=== PATIENT | female | born 1955 | race Caucasian/White ===

== ENCOUNTER 2017-06-21 11:04 | Emergency (ER) | payer OTHER ==
[2017-06-21] MEDS ORDERED: NALBUPHINE HCL 20 MG/ML AMPUL IM ONE (11:21)
--- NOTE | 2017-06-21 11:28 | ERNOTE ---
Lower Extremity HPI - Narrative Date of Service: 06/21/17 - General Lower Extremities Pain: foot: right Time Seen by Provider: 06/21/17 11:15 Source: patient Exam Limitations: no limitations - Immun/Allergies/Home Medications Immunizations: IMMUNIZATION HX Immunizations Up to Date No History of Influenza Vaccine No Hx Pneumococcal Vaccination No Allergies/Adverse Reactions: Allergies Allergy/AdvReac Type Severity Reaction Status Date / Time No Known Allergies Allergy Verified 06/21/17 11:16 Home Medications: HOME MEDICATIONS Ibuprofen [Motrin] 600 mg PO PRN PRN 06/21/17 [Last Taken Unknown] oxyCODONE HCL/ACETAMINOPHEN [Percocet 5 MG/325 MG] 1 tab PO Q4H PRN #20 tab [Last Taken Unknown] - History of Present Illness Narrative: Pt. 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 Pt. denies hitting her head or pain anywhere else. Pt. denies any numbness, tingling, SOB, or CP. Pt. states that movement and ambulation are difficult and exacerbate the pain and nothing alleviates the pain despite taking 600mg Ibuprofen prior to arrival. Review of Systems - Review of Systems Constitutional: Present: no symptoms reported. Absent: recent illness, fever, chills, weakness, fatigue, malaise EYE: Present: no symptoms reported ENT: Present: no symptoms reported Respiratory: Present: no symptoms reported. Absent: shortness of breath, cough , wheezing Cardiology: Present: no symptoms reported. Absent: chest pain, palpitations, edema Gastrointestinal/Abdominal: Present: no symptoms reported. Absent: nausea, vomiting, diarrhea, abdominal pain Genitourinary: Present: no symptoms reported. Absent: frequency, decreased urinary output Musculoskeletal: Present: joint pain - R foot and ankle Skin: Present: no symptoms reported. Absent: rash, change in hair/nails Neurological: Present: no symptoms reported. Absent: headache, dizziness/light- headedness, numbness, tingling All Other Systems: All systems neg except as marked - Patient's Past Medical History Patient History - Medical: No pertinent hx Patient History - Cardiac/Respiratory: No pertinent hx Patient History - Cancer: No Hx of Cancer Patient History - Surgical Procedures: Appendectomy, Colonoscopy Patient History - Other: None LMP (females 10-50): post - Social History Living Situations: home Psych History: No pertinent hx Smoking Status: Never smoker Alcohol Use: none Drug Use: none - Immunizations Immunizations Up to Date: No Hx Pneumococcal Vaccination: No History of Influenza Vaccine: No Physical Exam - Physical Exam General Appearance: Present: wd/wn, alert, no apparent distress Head Exam: Present: normal inspection, no evidence of injury Eye Exam: Normal inspection: bilateral Neck: Present: normal inspection Respiratory: Present: no respiratory distress, normal breath sounds, no accessory muscle use, chest nontender, lungs clear Cardiovascular/Chest: Present: regular rate, rhythm, no murmur, normal peripheral pulses Back Exam: Present: normal inspection Extremity Exam: Present: decreased range of motion - R ankle and foot, bony tenderness - calcaneous prox metatarsal dorsal ankle row bones and prox metatarsals, joint swelling - R ankle Neurological Exam: Present: alert, oriented, normal mood/affect, no motor/ sensory deficits Skin Exam: Present: normal color, warm/dry. Absent: pallor, skin rash ED Progress - Date and Time Seen: Date and Time: 06/21/17 12:09 Disucussed case with Radha Hull and he will come see pt. after reviewing xrays. 06/21/17 12:20 Radha recommends stress view of ankle called and spoke with brian in xray and she is calling in specific tech to take this xray. 06/21/17 12:58 Radha reviewed stress xray and recommends follow up on monday and cam boot with crutches. - Vital Signs Patient's Vital Signs:: I have reviewed the patient's vital signs. Vital Signs: Vital Signs 06/21/17 11:08 Temperature 36.9 C Pulse Rate 63 Respiratory 16 Rate Blood Pressure 166/96 O2 Sat by Pulse 99 Oximetry - X-Ray X-Ray #1 X-Ray: ankle Interpretation: Reviewed by me X-ray Comments: R minimally displaced lateral malleolar fracture X-Ray #2 X-Ray: ankle Interpretation: Reviewed by me X-ray Comments: no stress changes in joint mortise - Progress/Reassessment Chief Complaint: Lower Extremity Pain/ Injury Departure Clinical Impression: Ankle fracture, lateral malleolus, closed Qualifiers: Encounter type: initial encounter Fracture alignment: nondisplaced Laterality: right Qualified Code(s): S82.64XA - Nondisplaced fracture of lateral malleolus of right fibula, initial encounter for closed fracture - Departure Disposition: Home self-care Condition: Good Instructions: Ankle Fracture, [id number] Additional Instructions: Please wear boot at all times and follow up with radha as planned. Prescriptions: oxyCODONE HCL/ACETAMINOPHEN [Percocet 5 MG/325 MG] 1 tab PO Q4H PRN #20 tab PRN Reason: Pain
[2017-06-21] MEDS ORDERED: NALBUPHINE HCL 20 MG/ML AMPUL ONE (11:46)
[2017-06-21 15:14] VITALS: BP 163/78
== END 2017-06-21 13:20 | disposition home or self-care (01) ==
LOC: ER 11:04
PROC: 2W3QX1Z Immobilization of Right Lower Leg using Splint (ICD-10-PCS; principal; 2017-06-21)
DX: S82.64XA Nondisplaced fracture of lateral malleolus of right fibula, initial encounter for closed fracture (principal); W01.198A Fall on same level from slipping, tripping and stumbling with subsequent striking against other object, initial encounter; Y93.89 Activity, other specified; Y92.63 Factory as the place of occurrence of the external cause; Y99.0 Civilian activity done for income or pay

== ENCOUNTER 2019-07-08 15:19 | Observation (INO) ==
[2019-07-08 15:37] LABS: Hematocrit 39.7 % (37.0-47.0); Hemoglobin 13.5 gm/dL (12.5-16.0); Mean Cell Volume 87.6 fl (78-100); Mean Corpuscular Hemoglobin 29.8 pg (27-31); Mean Platelet Volume 9.8 fl (8-12.5); Neutrophil % 53.1 % (42-75.0); Platelet Count 225 K/mm3 (150-450); Red Blood Count 4.53 M/mm3 (4.2-5.4); Red Cell Distribution Width 12.5 % (11.5-14.0); White Blood Count 6.5 K/mm3 (4.0-10.5)
[2019-07-08 15:38] LABS: Neutrophil # 3.5 K/mm3 (1.3-6.0)
[2019-07-08 15:56] LABS: ALT 18 U/L (19-67); AST 14 U/L (0-48); Albumin * 3.7 gm/dl (3.4-5.0); Alkaline Phosphatase * 110 U/L (50-170); Anion Gap 12.7 mmol/L (6.8-13.8); BUN/Creatinine Ratio 15.1 (9.0-21.6); Bilirubin, Total 0.3 mg/dL (0.0-1.1); Blood Urea Nitrogen 13 mg/dL (3-23); Ca. Corrected For Albumin 8.9 mg/dL (8.4-10.2); Carbon Dioxide 27.9 mmol/L (24-32.6); Chloride 103 mmol/L (97-106); Glucose * 90 mg/dL (70-110); Potassium 3.6 mmol/L (3.4-4.6); Sodium 140 mmol/L (132-142); Total Protein 7.8 gm/dL (6.2-8.2); Troponin I Less than 0.017 ng/mL (0.00-0.10)
[2019-07-08] MEDS ORDERED: ASPIRIN 81 MG TAB.CHEW PO ONE (16:18)
--- NOTE | 2019-07-08 16:23 | ERNOTE ---
Chest Pain/Cardiac HPI Chief Complaint: General Assessment Time Seen by Provider: 07/08/19 15:52 Source: patient Exam Limitations: no limitations Immunizations: IMMUNIZATION HX Immunizations Up to Date Yes History of Influenza Vaccine No Hx Pneumococcal Vaccination No Allergies/Adverse Reactions: Allergies No Known Allergies Allergy (Verified 07/08/19 15:31) Home Medications: HOME MEDICATIONS Ibuprofen [Motrin] 600 mg PO PRN PRN 06/21/17 [Last Taken Unknown] pantoprazole 40 mg tablet,delayed release 40 mg PO DAILY #30 tab 07/04/19 [Last Taken Unknown] Narrative: Three nights ago patient started to feel light headed, worse with getting up, two days ago she started to have central chest pressure, worse with activity. She has no prior history of heart disease, she currently has no pressure. Her mother three weeks ago which leaves her stressed, her sister recently has CABG Date (Duration): 07/05/19 Timing: constant Severity/Quality: mild, pressure Location: central Chest Pain Radiation: no radiation Activities at Onset: none Modifying Factors - Improves: Present: rest Modifying Factors - Worsens: Present: exercise Nitro Today/Relief: no nitro taken today Aspirin Treatment Today: no aspirin today Associated Symptoms: Present: dizziness, palpitations, nausea - this morning. Absent: headache, shortness of breath Prior Chest Pain/Cardiac Workup: Denies: prior chest pain, heart attack Prior Treatment: Denies: recently seen, currently on antibiotics Review of Systems - Review of Systems Constitutional: Absent: recent illness ENT: Absent: nose congestion, sore throat Respiratory: Present: See HPI, shortness of breath. Absent: cough Cardiology: Present: See HPI, chest pain Gastrointestinal/Abdominal: Present: See HPI, nausea. Absent: vomiting, diarrhea, abdominal pain Genitourinary: Present: no symptoms reported Musculoskeletal: Absent: back pain Neurological: Absent: headache Medical History (Updated 10/03/18 @ 08:28 by Radha Espinal CMA) Fracture, fibula Onset Date: ~06/23/17 right Surgical History: Surgical History (Updated 07/08/19 @ 17:45 by Madeleine Mejia MD) History of appendectomy Onset Date: ~1964 History of colonoscopy Onset Date: ~1998 History of rectal polypectomy Onset Date: ~1998 Family History: Family History (Updated 10/03/18 @ 08:30 by Radha Espinal CMA) Sister Cardiac abnormality Father Cardiac abnormality Cancer colon Mother Cancer uterine Hypertension Brother Myocardial infarction Cancer renal Social History: (Last Reviewed 07/08/19 @ 17:26 by Madhuri Terry RN) Social History: Marital status: household members: spouse Service: No Tobacco: Smoking Status: Former smoker Alcohol: alcohol intake: current alcohol intake frequency: a few times a month Substance Use: substance use type: does not use Dietary Habits: caffeine: Yes Type: tea, carbonated beverages Physical Exam - Physical Exam General Appearance: Present: wd/wn, alert, no apparent distress, anxious, obese Respiratory: Present: no respiratory distress, normal breath sounds, no accessory muscle use, chest nontender, lungs clear Cardiovascular/Chest: Present: regular rate, rhythm, no murmur Gastrointestinal/Abdominal: Present: normal bowel sounds, nontender, no ndistended, soft Neurological Exam: Present: alert, oriented, normal mood/affect Skin Exam: Present: normal color, warm/dry Progress - Results and Orders Patient's Lab Results:: I have reviewed the patient's lab results. - Vital Signs Patient's Vital Signs:: I have reviewed the patient's vital signs. Vital Signs: Vital Signs 07/08/19 15:20 Temperature 36.5 C Pulse Rate 64 Respiratory Rate 16 Blood Pressure 144/99 H O2 Sat by Pulse Oximetry 98 - EKG EKG #1 EKG: NSR, nonspecific ST T wave changes, other - no acute changes EKG read: Interp. by me - X-Ray X-Ray #1 X-Ray: chest - no acute findings Interpretation: Reviewed by me - Progress/Reassessment Chief Complaint: General Assessment Progress Note-Subjective: 07/08/19 16:10 discussed test results with patient and and limitations of test to rule out CAD offered admission, patient agreed 07/08/19 16:22 discussed with august [place] to admit for chest pain observation Departure Clinical Impression: Chest pain Qualifiers: Chest pain type: precordial pain Qualified Code(s): R07.2 - Precordial pain - Departure Disposition: Still a patient Condition: Stable
[2019-07-08] MEDS ORDERED: ROSUVASTATIN CALCIUM 20 MG TABLET PO STA (16:47)
[2019-07-08] MEDS ORDERED: NITROGLYCERIN 0.4 MG/TAB BTL SL PRN (17:33)
--- NOTE | 2019-07-08 17:45 | HP ---
Chief Complaint - Chief Complaint Date of Service: 07/08/19 Time of Service: 17:34 Chief Complaint: I had chest pressure, dizziness, and numbness in my fingers this morning History of Present Illness: 63-year-old female with only past medical history of GERD was evaluated in our ER due to increasing chest pressure in the retrosternal region with radiation up her neck and to her back that started since this past Monday. Patient reports her symptoms started with dizziness while going about her day at home, she then went to sit down and started having chest pressure and discomfort. She also said she developed nausea but did not vomit. Patient reports that her symptoms continued into Monday so then she became alarmed but did not go to the ER. This morning she called her physician's office and was instructed to go to the ER for her symptoms. Patient denies having these symptoms before or any cardiac history. Upon questioning she denies being diagnosed or treated for anxiety but admits to increased emotional strain due to the recent passing of her mother. Patient reports that the has been difficult for her and that she has been under a lot of emotional stress but is not sure that is related to her symptoms. Medical History (Updated 07/08/19 @ 16:23 by Kenisha Martinez MD) Fracture, fibula Onset Date: ~06/23/17 right Surgical History: Surgical History (Updated 10/03/18 @ 08:28 by Radha Espinal [facility]) History of appendectomy Onset Date: ~1964 History of colonoscopy Onset Date: ~1998 History of rectal polypectomy Onset Date: ~1998 Family History: Family History (Updated 10/03/18 @ 08:30 by Radha Espinal [facility]) Sister Cardiac abnormality Father Cardiac abnormality Cancer colon Mother Cancer uterine Hypertension Brother Myocardial infarction Cancer renal Social History: (Last Reviewed 07/08/19 @ 17:26 by Madhuri Terry RN) Social History: Marital status: household members: spouse Service: No Tobacco: Smoking Status: Former smoker Alcohol: alcohol intake: current alcohol intake frequency: a few times a month Substance Use: substance use type: does not use Dietary Habits: caffeine: Yes Type: tea, carbonated beverages Peds Patient Hx - Developmental: No Pertinent Hx Peds Patient Hx - Medical: No Pertinent Hx Peds Patient Hx - Cardiac/Respiratory: No Pertinent Hx Peds Patient Hx - Surgical: No Surgical History Patient History - Cancer: No Hx of Cancer Review Of Systems (GEN) - Review of Systems Generalized/Overall Review: Present: No Symptoms Reported EENTM: Present: No Symptoms Reported Respiratory: Present: No Symptoms Reported Cardiac: Present: Chest Pain Abdominal: Present: Nausea Genitourinary: Present: No Symptoms Reported Musculoskeletal: Present: No Symptoms Reported Neurological: Present: No Symptoms Reported Skin: Present: No Symptoms Reported Endocrine: Present: No Symptoms Reported Immunizations: IMMUNIZATION HX Immunizations Up to Date Yes History of Influenza Vaccine No Hx Pneumococcal Vaccination No Allergies/Adverse Reactions: Allergies Allergy/AdvReac Type Severity Reaction Status Date / Time No Known Allergies Allergy Verified 07/08/19 15:31 Home Medications: HOME MEDICATIONS Ibuprofen [Motrin] 600 mg PO PRN PRN 06/21/17 [Last Taken Unknown] pantoprazole 40 mg tablet,delayed release 40 mg PO DAILY #30 tab 07/04/19 [Last Taken Unknown] Exam - Exam Vital Signs: Vital Signs - Last Taken Temp 36.5 C 07/08/19 15:20 Pulse 70 07/08/19 17:00 Resp 13 07/08/19 17:00 BP 168/86 H 07/08/19 17:00 Pulse Ox 99 07/08/19 17:00 Constitutional: Present: Alert, Oriented x3, Cooperative, Well developed, Well nourished, No distress ENT Exam: Present: normal ENT inspection, hearing grossly normal, pharynx normal, TMs normal Eye Exam: bilateral eye: normal inspection, PERRL, EOMI Neck: Present: non-tender, full range of motion, supple, normal inspection, trachea midline Back Exam: Present: normal inspection, no CVA tenderness, no vertebral tenderness Breasts: Present: Exam deferred Respiratory: Present: chest non-tender, lungs clear, normal breath sounds, no respiratory distress, no accessory muscle use Cardiovascular/Chest: Present: normal peripheral pulses, regular rate, rhythm, no chest tenderness, no edema, no gallop, no JVD, no murmur, no rub Peripheral Pulses: carotid (R): 3+, carotid (L): 3+, femoral (R): 3+, femoral (L): 3+, dorsalis-pedis (R): 3+, dorsalis-pedis (L): 3+ Abdomen: Present: Normal bowel sounds, soft, nontender, nondistended, no rebound tenderness, no hepatospenomegaly, no masses /Rectal: Present: Exam deferred Extremity: Present: normal range of motion, non-tender, normal inspection, no pedal edema, no calf tenderness, normal capillary refill, pelvis stable Skin Exam: Present: normal color, warm/dry, no cyanosis Lymphatic: Present: no adenopathy Neurologic: Present: cutter head sharpener II-XII nml as tested, normal cerebellar test, no motor/sensory deficits, alert, normal mood/affect, oriented x 3 Appearance: Present: appropriate appearance, appropriate insight, neat, no memory impairment Eye contact: Present: cooperative, good eye contact, normal speech Thoughts: Present: normal thought pattern, no apparent hallucination Diagnostic Studies: Abnormal Lab Results 07/08/19 07/08/19 Range/Units 15:35 15:35 Eosinophils % 3.2 H (0.0-3.0) % Basophils % 1.1 H (0.0-1.0) % ALT 18 L (19-67) U/L Laboratory Results WBC 6.5 K/mm3 (4.0-10.5) 07/08/19 15:35 RBC 4.53 M/mm3 (4.2-5.4) 07/08/19 15:35 Hgb 13.5 gm/dL (12.5-16.0) 07/08/19 15:35 Hct 39.7 % (37.0-47.0) 07/08/19 15:35 MCV 87.6 fl (78-100) 07/08/19 15:35 MCH 29.8 pg (27-31) 07/08/19 15:35 MCHC 34.0 g/dl (32-36) 07/08/19 15:35 RDW 12.5 % (11.5-14.0) 07/08/19 15:35 Plt Count 225 K/mm3 (150-450) 07/08/19 15:35 MPV 9.8 fl (8-12.5) 07/08/19 15:35 Immature Gran % (Auto) 0.30 % (0.001-0.429) 07/08/19 15:35 Immature Gran # (Auto) 0.02 K/mm3 (0.000-0.0310) 07/08/19 15:35 53.1 % (42-75.0) 07/08/19 15:35 35.5 % (20-51) 07/08/19 15:35 6.8 % (0.0-9) 07/08/19 15:35 3.2 % (0.0-3.0) H 07/08/19 15:35 1.1 % (0.0-1.0) H 07/08/19 15:35 Nucleated RBC % 0.0 k/mm3 (0-1) 07/08/19 15:35 3.5 K/mm3 (1.3-6.0) 07/08/19 15:35 2.31 k/mm3 (1.5-3.5) 07/08/19 15:35 0.4 k/mm3 (0.0-1.0) 07/08/19 15:35 0.2 k/mm3 (0.0-0.7) 07/08/19 15:35 Absolute Basophils 0.1 k/mm3 (0.0-0.1) 07/08/19 15:35 Sodium 140 mmol/L (132-142) 07/08/19 15:35 140 mmol/L (130-142) 07/08/19 15:35 Potassium 3.6 mmol/L (3.4-4.6) 07/08/19 15:35 Chloride 103 mmol/L (97-106) 07/08/19 15:35 Carbon Dioxide 27.9 mmol/L (24-32.6) 07/08/19 15:35 12.7 mmol/L (6.8-13.8) 07/08/19 15:35 BUN 13 mg/dL (3-23) 07/08/19 15:35 0.86 mg/dL (0.4-1.4) 07/08/19 15:35 Est GFR (Non-Af Amer) 70 mL/min (60-130) 07/08/19 15:35 15.1 (9.0-21.6) 07/08/19 15:35 90 mg/dL (70-110) 07/08/19 15:35 Calcium 9.0 mg/dL (7.9-10.9) 07/08/19 15:35 Calcium Adj for Albumin 8.9 mg/dL (8.4-10.2) 07/08/19 15:35 0.3 mg/dL (0.0-1.1) 07/08/19 15:35 AST 14 U/L (0-48) 07/08/19 15:35 ALT 18 U/L (19-67) L 07/08/19 15:35 110 U/L (50-170) 07/08/19 15:35 Less than 0.017 ng/mL (0.00-0.10) 07/08/19 15:35 7.8 gm/dL (6.2-8.2) 07/08/19 15:35 3.7 gm/dl (3.4-5.0) 07/08/19 15:35 Assessment/Plan - Narrative Narrative: Patient was evaluated and medical chart was reviewed and decision to admit for rule out of [place] was made. Patient was administered a loading dose of aspirin while in the ER EKG was performed which is unremarkable for any significant findings, cardiac troponins are negative so far. We will keep your in [facility] overnight for serial cardiac troponins and reevaluate her in the morning. Currently patient denies recurrence of her chest pain or any other symptoms and is resting comfortably. - Assessment/Plan (1) Chest pain Problem: Acute (2) Ruled out for myocardial infarction Problem: Acute
[2019-07-08] MEDS: LISINOPRIL 5 MG TABLET PO SCH (17:57)
[2019-07-08] MEDS ORDERED: FLU VACC QS2019-20(6MOS UP)/PF 60 MCG/0.5 ML SYRINGE IM ONE (19:00)
[2019-07-09] MEDS ORDERED: PANTOPRAZOLE SODIUM 40 MG TABLET.EC PO SCH (07:00)
[2019-07-09] MEDS: LISINOPRIL 5 MG TABLET PO SCH (08:18)
--- NOTE | 2019-07-09 09:36 | DS ---
(1) Chest pain Problem: Resolved (2) Ruled out for myocardial infarction Problem: Ruled-out Date of Discharge:: 07/09/19 Description of Stay: 63-year-old female admitted for chest pressure and dizziness was evaluated at bedside and was found to be afebrile and in no acute distress. Patient had an uneventful evening at our institution and maintained stable vitals. Serial cardiac enzymes were negative and she denies recurrence of her chest discomfort. Patient currently completely asymptomatic and is requesting to go home. She was informed that given the negative results of her cardiac enzymes and her stable condition it is very unlikely that she infarcted however she was instructed to follow-up with her PCP in the next 1 to 2 weeks. Procedures Performed: none Results and Findings: Lab Pending Results 07/08/19 15:35: WBC 6.5, RBC 4.53, Hgb 13.5, Hct 39.7, MCV 87.6, MCH 29.8, MCHC 34.0, RDW 12.5, Plt Count 225, MPV 9.8, Immature Gran % (Auto) 0.30, Immature Gran # (Auto) 0.02, Neutrophils % 53.1, Lymphocytes % 35.5, Monocytes % 6.8, Eosinophils % 3.2 H, Basophils % 1.1 H, Nucleated RBC % 0.0, Neutrophils # 3.5, Lymphocytes # 2.31, Monocytes # 0.4, Eosinophils # 0.2, Absolute Basophils 0.1 07/08/19 15:35: Sodium 140, Plasma Sodium 140, Potassium 3.6, Chloride 103, Carbon Dioxide 27.9, Anion Gap 12.7, BUN 13, Creatinine 0.86, Est GFR (Non-Af Amer) 70, BUN/Creatinine Ratio 15.1, Random Glucose 90, Calcium 9.0, Calcium Adj for Albumin 8.9, Total Bilirubin 0.3, AST 14, ALT 18 L, Alkaline Phosphatase 110, Troponin I Less than 0.017, Total Protein 7.8, Albumin 3.7 07/08/19 21:40: Troponin I Less than 0.017 Discharge Location: Home Disposition: Home self-care Condition: Good Face to Face Encounter completed per CMS Guidelines: No Discharge Activity: Activity as tolerated Discharge Diet: General/regular food Referrals: Giovanna Dunlap MD [Primary Care Provider] - Additional Patient Instructions (free text): -Please make TCM appointment unless custodial discharge, or if following up with outside provider. Thank you! Sabi @ [facility] or Chiqui at [phone]. Complete Home Medications List: Complete Home Medication List: Ibuprofen [Motrin] 600 mg PO PRN PRN 06/21/17 pantoprazole 40 mg tablet,delayed release 40 mg PO DAILY #30 tab 07/04/19
[2019-07-09 10:49] VITALS: BP 107/52
== END 2019-07-09 11:15 | disposition home or self-care (01) ==
LOC: MS 15:19 → ER 15:19 → MS 17:00
PROVIDERS: ADMIT Family Medicine; ATTEND Family Medicine
CPT/HCPCS: 36415; 71020; 71046; 80053; 84484; 85025; 90686; 93005; 99285; G0378